=== PATIENT | male | born 1990 | race Two or more races ===

== ENCOUNTER → 2025-02-18 10:00 | Outpatient (REF) | payer BC, SELFPAY | LOC: RAD 10:00 | PROVIDERS: ATTENDING PHYSICIAN Internal Medicine Cardiovascular Disease; FAMILY PHYSICIAN Internal Medicine | DX: R94.39 Abnormal result of other cardiovascular function study (principal); Z68.30 Body mass index [BMI] 30.0-30.9, adult; I10 Essential (primary) hypertension; R00.2 Palpitations | CPT/HCPCS: 75574; Q9967 ==